=== PATIENT | female | born 1935 | race Caucasian/White ===

== ENCOUNTER 2017-08-17 07:49 | Inpatient (IN) | payer BC ==
[2017-08-17] MEDS: ALBUTEROL 0.083% (NEB) 2.5 MG/3 ML AMP INH (08:20)
[2017-08-17] MEDS: FUROSEMIDE 40 MG INJ IV (08:32)
[2017-08-17] MEDS: NITROGLYCERIN 2% 1 GM OINT PKT TD (08:33)
[2017-08-17] MEDS ORDERED: EPINEPHrine 0.1 MG/ML SYG (08:42)
[2017-08-17 09:05] LABS: ADD MAN DIFF? NO
[2017-08-17 09:12] LABS: BASOPHILS % 0.3 % (0.0-2.0); EOSINOPHILS % 0.1 % (0.0-7.0); HEMATOCRIT 39.4 % (37.0-47.0); HEMOGLOBIN 12.5 g/dl (12.0-16.0); LYMPHOCYTES # 1.8 10^3/ul (0.8-2.9); LYMPHOCYTES % 11.5 % (15.0-51.0); MEAN CORPUSCULAR HEMOGLOBIN 27.1 pg (29.0-33.0); MEAN CORPUSCULAR HGB CONC 31.7 g/dl (32.0-37.0); MEAN CORPUSCULAR VOLUME 85.5 fl (82.0-101.0); MEAN PLATELET VOLUME 10.7 fl (7.4-10.4); MONOCYTE # 0.6 10^3/ul (0.3-0.9); MONOCYTES % 3.6 % (0.0-11.0); NEUTROPHIL # 13.1 10^3/ul (1.6-7.5); NEUTROPHILS % 84.1 % (39.0-77.0); PLATELET COUNT 273 10^3/UL (140-415); RED BLOOD COUNT 4.61 10^6/ul (4.20-5.40); RED CELL DISTRIBUTION WIDTH 12.4 % (11.5-14.5)
[2017-08-17 09:12] LABS: WHITE BLOOD COUNT 15.6 10^3/ul (4.8-10.8)
[2017-08-17 09:27] LABS: ALANINE AMINOTRANSFERASE 37 IU/L (13-69); ALBUMIN 4.9 g/dl (3.3-4.9); ALBUMIN/GLOBULIN RATIO 1.68; ALKALINE PHOSPHATASE 59 IU/L (42-121); ANION GAP 30 (8-16); ASPARTATE AMINO TRANSFERASE 297 IU/L (15-46); BILIRUBIN,INDIRECT 0.1 mg/dl (0-1.1); BILIRUBIN,TOTAL 0.1 mg/dl (0.2-1.3); BLOOD UREA NITROGEN 36 mg/dl (7-20); CALCIUM 9.2 mg/dl (8.4-10.2); CARBON DIOXIDE 15 mmol/L (21-31); CHLORIDE 101 mmol/L (97-110); CREATININE 1.63 mg/dl (0.44-1.00); SODIUM 141 mmol/L (135-144); TOTAL PROTEIN 7.8 g/dl (6.1-8.1)
[2017-08-17 09:37] LABS: B-TYPE NATRIURETIC PEPTIDE 6570 PG/ML (0-450); INR 1.11; POTASSIUM 5.4 mmol/L (3.5-5.1); PROTIME 14.5 Sec (11.9-14.9); PT RATIO 1.1
[2017-08-17 09:38] LABS: GLUCOSE 401 mg/dl (70-220)
[2017-08-17 09:38] LABS: LACTIC ACID 11.3 mmol/L (0.5-2.0)
[2017-08-17] MEDS: PIPER-TAZO 3.375 GM IV (PMX) 100 ML IVPB (10:02)
[2017-08-17] MEDS: INSULIN REGULAR, HUMAN 100 UNIT/1 ML 3ML VIAL IV (10:03)
[2017-08-17] MEDS: ASPIRIN 325 MG TAB PO (10:23)
[2017-08-17] MEDS: LEVOFLOXACIN 750MG/D5W (PMX) 150 ML IVPB (11:10)
[2017-08-17] MEDS ORDERED: HEPARIN 1000 UNITS/ML 10 ML INJ IV (12:30)
[2017-08-17 12:44] LABS: LACTIC ACID 8.6 mmol/L (0.5-2.0)
[2017-08-17 12:47] LABS: ANION GAP 27 (8-16); BLOOD UREA NITROGEN 38 mg/dl (7-20); CALCIUM 9.2 mg/dl (8.4-10.2); CARBON DIOXIDE 19 mmol/L (21-31); CHLORIDE 102 mmol/L (97-110); CREATININE 1.64 mg/dl (0.44-1.00); GLUCOSE 271 mg/dl (70-220); POTASSIUM 4.8 mmol/L (3.5-5.1); SODIUM 143 mmol/L (135-144)
[2017-08-17] MEDS: HEPARIN 1000 UNITS/ML 10 ML INJ IV (13:05)
[2017-08-17] MEDS: HEPARIN 25000 UNITS/250 ML 250 ML IV (13:06)
[2017-08-17 13:38] LABS: CREATINE KINASE 2257 IU/L (23-200)
[2017-08-17] MEDS ORDERED: LORAZEPAM 0.5 MG TAB PO (14:00)
[2017-08-17] MEDS ORDERED: morphine 2 MG INJ IV (14:00)
[2017-08-17] MEDS ORDERED: ONDANSETRON 4 MG INJ IV (14:00)
[2017-08-17] MEDS ORDERED: ALBUTEROL 0.083% (NEB) 2.5 MG/3 ML AMP NEB (14:00)
[2017-08-17] MEDS ORDERED: ZOLPIDEM 5 MG TAB PO (14:00)
[2017-08-17 14:19] LABS: ADD UMIC YES; UR AMORPHOUS CRYSTAL FEW /HPF (NONE SEEN); UR ASCORBIC ACID NEGATIVE (NEGATIVE); UR BACTERIA FEW /HPF (NONE SEEN); UR BILIRUBIN (Dip) NEGATIVE (NEGATIVE); UR BLOOD (Dip) 2+ mg/dL (NEGATIVE); UR CLARITY SLIGHTLY CLOUDY (CLEAR); UR COLOR YELLOW (YELLOW); UR GLUCOSE (Dip) 1+ mg/dL (NEGATIVE); UR KETONES (Dip) NEGATIVE (NEGATIVE); UR LEUKOCYTE ESTERASE (Dip) TRACE Leu/ul (NEGATIVE); UR NITRITE (Dip) NEGATIVE (NEGATIVE); UR RBC 1 /HPF (0-5); UR SPECIFIC GRAVITY (Dip) 1.012 (1.003-1.030); UR TOTAL PROTEIN (Dip) 1+ mg/dl (NEGATIVE); UR UROBILINOGEN (Dip) NEGATIVE (NEGATIVE); UR WBC 5 /HPF (0-5)
[2017-08-17 14:40] LABS: SODIUM,URINE RANDOM 109 mmol/L (30-90)
[2017-08-17 14:40] LABS: CREATININE,URINE RANDOM 74.29 mg/dl (20-320)
[2017-08-17 14:46] LABS: MAGNESIUM 0.9 mg/dl (1.7-2.5)
[2017-08-17 14:52] LABS: CREATINE KINASE 2435 IU/L (23-200)
[2017-08-17] MEDS ORDERED: MAGNESIUM SULFATE 4 GM/100 ML 100 ML IVPB (15:30)
[2017-08-17] MEDS: DOCUSATE SODIUM 100 MG CAP PO (15:33)
[2017-08-17] MEDS: MAGNESIUM SULFATE 2 GM/50 ML 50 ML IVPB ×2 (15:33→17:21)
[2017-08-17] MEDS: FUROSEMIDE 20 MG INJ IV ×2 (15:33→20:15)
[2017-08-17] MEDS: ATORVASTATIN 80 MG TAB PO (15:33)
[2017-08-17] MEDS: VANCOMYCIN 750 MG in DEXTROSE 5% 150 ML IVPB (17:20)
[2017-08-17] MEDS: INSULIN ASPART [NOVOLOG] 3 ML PEN SC ×2 (17:51→20:21)
[2017-08-17 19:37] LABS: PARTIAL THROMBOPLASTIN TIME 72.9 Sec (25.0-35.0)
[2017-08-17] MEDS: FAMOTIDINE 20 MG INJ IV (20:15)
[2017-08-18 01:27] LABS: PARTIAL THROMBOPLASTIN TIME 53.9 Sec (25.0-35.0)
[2017-08-18] MEDS: DOCUSATE SODIUM 100 MG CAP PO ×3 (02:00→20:13)
[2017-08-18] MEDS: ACCU-CHEK XX (02:05)
[2017-08-18 05:39] LABS: ADD MAN DIFF? NO
[2017-08-18 05:42] LABS: BASOPHIL # 0.1 10^3/ul (0.0-0.1); BASOPHILS % 0.6 % (0.0-2.0); EOSINOPHILS % 0.2 % (0.0-7.0); HEMATOCRIT 31.8 % (37.0-47.0); HEMOGLOBIN 10.6 g/dl (12.0-16.0); LYMPHOCYTES # 1.7 10^3/ul (0.8-2.9); LYMPHOCYTES % 19.1 % (15.0-51.0); MEAN CORPUSCULAR HEMOGLOBIN 27.4 pg (29.0-33.0); MEAN CORPUSCULAR HGB CONC 33.3 g/dl (32.0-37.0); MEAN CORPUSCULAR VOLUME 82.2 fl (82.0-101.0); MEAN PLATELET VOLUME 10.3 fl (7.4-10.4); MONOCYTE # 0.6 10^3/ul (0.3-0.9); NEUTROPHIL # 6.5 10^3/ul (1.6-7.5); NEUTROPHILS % 72.7 % (39.0-77.0); PLATELET COUNT 193 10^3/UL (140-415); RED BLOOD COUNT 3.87 10^6/ul (4.20-5.40); RED CELL DISTRIBUTION WIDTH 12.5 % (11.5-14.5)
[2017-08-18 07:11] LABS: ANION GAP 17 (8-16); BLOOD UREA NITROGEN 35 mg/dl (7-20); CALCIUM 8.8 mg/dl (8.4-10.2); CARBON DIOXIDE 24 mmol/L (21-31); CHLORIDE 102 mmol/L (97-110); CK INDEX 2.5; CREATINE KINASE 1079 IU/L (23-200); CREATININE 1.39 mg/dl (0.44-1.00); GLUCOSE 207 mg/dl (70-220); PHOSPHORUS 4.3 mg/dl (2.5-4.9); POTASSIUM 4.5 mmol/L (3.5-5.1); SODIUM 138 mmol/L (135-144)
[2017-08-18] MEDS: INSULIN ASPART [NOVOLOG] 3 ML PEN SC ×6 (07:35→21:06)
[2017-08-18 08:40] LABS: PARTIAL THROMBOPLASTIN TIME 60.5 Sec (25.0-35.0)
[2017-08-18] MEDS: ASPIRIN 81 MG TAB PO (09:00)
[2017-08-18] MEDS ORDERED: BIVALIRUDIN 250MG /NS 50 ML 50 ML IVPB (12:30)
[2017-08-18] MEDS: FUROSEMIDE 20 MG INJ IV ×2 (13:56→18:44)
[2017-08-18] MEDS: MAGNESIUM SULFATE 2 GM/50 ML 50 ML IVPB (13:56)
[2017-08-18 15:15] LABS: CREATININE, RANDOM URINE 89 mg/dL (20-320); MICROALBUMIN 8.6 mg/dL; MICROALBUMIN/CREATININE RATIO 97 (<30)
[2017-08-18] MEDS ORDERED: GLUCOSE GEL 15 GRAM TUBE BUCCAL (19:00)
[2017-08-18] MEDS ORDERED: DEXTROSE 50% 50 ML SYRINGE IV ×2 (19:00)
[2017-08-18] MEDS ORDERED: GLUCAGON 1 MG INJ IM (19:00)
[2017-08-18] MEDS ORDERED: GLUCOSE GEL 15 GRAM TUBE PO ×2 (19:00)
[2017-08-18] MEDS: FAMOTIDINE 20 MG INJ IV (20:13)
[2017-08-18] MEDS: ATORVASTATIN 80 MG TAB PO (20:13)
[2017-08-18] MEDS: TICAGRELOR 90 MG TABLET PO (20:14)
[2017-08-18] MEDS: ACETAMINOPHEN 325 MG TAB PO (21:02)
[2017-08-19] MEDS: ACCU-CHEK XX (01:39)
[2017-08-19] MEDS: METOPROLOL 5 MG INJ IV (02:31)
[2017-08-19] MEDS: AMIODARONE 150MG/D5W BOLUS 100 ML IV (03:06)
[2017-08-19] MEDS: AMIODARONE 900 MG in DEXTROSE 5% 482 ML IV ×2 (03:41→17:34)
[2017-08-19 06:05] LABS: ADD MAN DIFF? NO
[2017-08-19 06:33] LABS: BASOPHIL # 0.1 10^3/ul (0.0-0.1); BASOPHILS % 0.6 % (0.0-2.0); EOSINOPHILS % 0.5 % (0.0-7.0); HEMOGLOBIN 11.5 g/dl (12.0-16.0); LYMPHOCYTES # 1.5 10^3/ul (0.8-2.9); LYMPHOCYTES % 17.4 % (15.0-51.0); MEAN CORPUSCULAR HEMOGLOBIN 27.3 pg (29.0-33.0); MEAN CORPUSCULAR HGB CONC 33.8 g/dl (32.0-37.0); MEAN CORPUSCULAR VOLUME 80.8 fl (82.0-101.0); MEAN PLATELET VOLUME 10.4 fl (7.4-10.4); MONOCYTE # 0.5 10^3/ul (0.3-0.9); NEUTROPHIL # 6.6 10^3/ul (1.6-7.5); PLATELET COUNT 211 10^3/UL (140-415); RED BLOOD COUNT 4.21 10^6/ul (4.20-5.40); RED CELL DISTRIBUTION WIDTH 12.9 % (11.5-14.5)
[2017-08-19 06:33] LABS: WHITE BLOOD COUNT 8.8 10^3/ul (4.8-10.8)
[2017-08-19 06:49] LABS: ANION GAP 17 (8-16); BLOOD UREA NITROGEN 33 mg/dl (7-20); CALCIUM 9.3 mg/dl (8.4-10.2); CARBON DIOXIDE 29 mmol/L (21-31); CHLORIDE 99 mmol/L (97-110); CREATININE 1.34 mg/dl (0.44-1.00); GLUCOSE 251 mg/dl (70-220); MAGNESIUM 2.1 mg/dl (1.7-2.5); POTASSIUM 4.4 mmol/L (3.5-5.1); SODIUM 141 mmol/L (135-144)
[2017-08-19] MEDS: ASPIRIN 81 MG TAB PO (08:36)
[2017-08-19] MEDS: DOCUSATE SODIUM 100 MG CAP PO ×2 (08:36→20:49)
[2017-08-19] MEDS: TICAGRELOR 90 MG TABLET PO ×2 (08:37→20:51)
[2017-08-19] MEDS: INSULIN GLARGINE [LANtus] 3 ML PEN SC (08:38)
[2017-08-19] MEDS: INSULIN ASPART [NOVOLOG] 3 ML PEN SC ×4 (08:41→20:52)
[2017-08-19] MEDS: SOD CHLORIDE 0.9% 250 ML IV (13:00)
[2017-08-19] MEDS ORDERED: ASPIRIN 325 MG TAB (16:28)
[2017-08-19] MEDS ORDERED: VERAPAMIL 5 MG INJ (16:28)
[2017-08-19] MEDS ORDERED: IODIXANOL LOCM 50 ML BTL (16:28)
[2017-08-19] MEDS ORDERED: IODIXANOL LOCM 100 ML BTL ×2 (16:28)
[2017-08-19] MEDS ORDERED: HEPARIN 1000 UNITS/ML 10 ML INJ (16:28)
[2017-08-19] MEDS ORDERED: NITROGLYCERIN (IC) 100 MCG/ML INJ (16:28)
[2017-08-19] MEDS ORDERED: IOHEXOL 350MG/ML 50 ML BTL (16:28)
[2017-08-19] MEDS ORDERED: FENTAnyl 50 MCG/ML VIAL (16:28)
[2017-08-19] MEDS ORDERED: LIDOCAINE 1% (MDV) 20 ML INJ (16:28)
[2017-08-19] MEDS ORDERED: MIDAZOLAM 1 MG/ML 2 ML INJ (16:28)
[2017-08-19] MEDS ORDERED: TICAGRELOR 90 MG TABLET (16:28)
[2017-08-19] MEDS ORDERED: BIVALIRUDIN 250MG /NS 50 ML 50 ML IVPB ×2 (16:28)
[2017-08-19] MEDS: ATORVASTATIN 80 MG TAB PO (20:50)
[2017-08-19] MEDS: FAMOTIDINE 20 MG INJ IV (20:50)
[2017-08-20] MEDS: ACCU-CHEK XX (02:10)
[2017-08-20] MEDS: AMIODARONE 900 MG in DEXTROSE 5% 482 ML IV ×2 (05:00→22:00)
[2017-08-20 05:27] LABS: ADD MAN DIFF? NO
[2017-08-20 05:40] LABS: BASOPHIL # 0.1 10^3/ul (0.0-0.1); BASOPHILS % 0.7 % (0.0-2.0); EOSINOPHILS # 0.1 10^3/ul (0.0-0.5); HEMATOCRIT 34.7 % (37.0-47.0); HEMOGLOBIN 11.7 g/dl (12.0-16.0); LYMPHOCYTES # 1.9 10^3/ul (0.8-2.9); LYMPHOCYTES % 21.8 % (15.0-51.0); MEAN CORPUSCULAR HEMOGLOBIN 27.3 pg (29.0-33.0); MEAN CORPUSCULAR HGB CONC 33.7 g/dl (32.0-37.0); MEAN CORPUSCULAR VOLUME 80.9 fl (82.0-101.0); MEAN PLATELET VOLUME 10.7 fl (7.4-10.4); MONOCYTE # 0.7 10^3/ul (0.3-0.9); MONOCYTES % 7.4 % (0.0-11.0); NEUTROPHILS % 68.5 % (39.0-77.0); PLATELET COUNT 231 10^3/UL (140-415); RED BLOOD COUNT 4.29 10^6/ul (4.20-5.40)
[2017-08-20 05:40] LABS: WHITE BLOOD COUNT 8.7 10^3/ul (4.8-10.8)
[2017-08-20 06:19] LABS: ANION GAP 20 (8-16); BLOOD UREA NITROGEN 36 mg/dl (7-20); CALCIUM 9.4 mg/dl (8.4-10.2); CARBON DIOXIDE 27 mmol/L (21-31); CHLORIDE 99 mmol/L (97-110); CREATININE 1.14 mg/dl (0.44-1.00); GLUCOSE 213 mg/dl (70-220); SODIUM 142 mmol/L (135-144)
[2017-08-20 06:31] LABS: MAGNESIUM 1.9 mg/dl (1.7-2.5)
[2017-08-20] MEDS: INSULIN ASPART [NOVOLOG] 3 ML PEN SC ×4 (07:40→20:48)
[2017-08-20] MEDS: INSULIN GLARGINE [LANtus] 3 ML PEN SC (07:41)
[2017-08-20] MEDS: ASPIRIN 81 MG TAB PO (08:18)
[2017-08-20] MEDS: DOCUSATE SODIUM 100 MG CAP PO ×2 (08:19→20:47)
[2017-08-20] MEDS: TICAGRELOR 90 MG TABLET PO ×2 (08:19→20:48)
[2017-08-20] MEDS: LINAGLIPTIN 5 MG TABLET PO (11:42)
[2017-08-20] MEDS: metFORMIN 500 MG TAB PO (17:41)
[2017-08-20] MEDS: ATORVASTATIN 80 MG TAB PO (20:46)
[2017-08-20] MEDS: FAMOTIDINE 20 MG INJ IV (20:46)
[2017-08-21] MEDS: ACCU-CHEK XX (02:36)
[2017-08-21 05:22] LABS: ADD MAN DIFF? NO
[2017-08-21 05:24] LABS: BASOPHIL # 0.1 10^3/ul (0.0-0.1); BASOPHILS % 0.5 % (0.0-2.0); EOSINOPHILS # 0.1 10^3/ul (0.0-0.5); EOSINOPHILS % 1.2 % (0.0-7.0); HEMATOCRIT 33.6 % (37.0-47.0); HEMOGLOBIN 11.3 g/dl (12.0-16.0); LYMPHOCYTES % 20.5 % (15.0-51.0); MEAN CORPUSCULAR HGB CONC 33.6 g/dl (32.0-37.0); MEAN CORPUSCULAR VOLUME 80.2 fl (82.0-101.0); MEAN PLATELET VOLUME 10.4 fl (7.4-10.4); MONOCYTE # 0.7 10^3/ul (0.3-0.9); MONOCYTES % 7.7 % (0.0-11.0); NEUTROPHIL # 6.7 10^3/ul (1.6-7.5); NEUTROPHILS % 69.3 % (39.0-77.0); PLATELET COUNT 253 10^3/UL (140-415); RED BLOOD COUNT 4.19 10^6/ul (4.20-5.40); RED CELL DISTRIBUTION WIDTH 12.7 % (11.5-14.5)
[2017-08-21 05:24] LABS: WHITE BLOOD COUNT 9.6 10^3/ul (4.8-10.8)
[2017-08-21 06:29] LABS: ANION GAP 17 (8-16); BLOOD UREA NITROGEN 38 mg/dl (7-20); CALCIUM 9.2 mg/dl (8.4-10.2); CARBON DIOXIDE 26 mmol/L (21-31); CHLORIDE 100 mmol/L (97-110); CREATININE 1.13 mg/dl (0.44-1.00); GLUCOSE 165 mg/dl (70-220); POTASSIUM 3.9 mmol/L (3.5-5.1); SODIUM 139 mmol/L (135-144)
[2017-08-21] MEDS: INSULIN ASPART [NOVOLOG] 3 ML PEN SC ×4 (08:24→20:31)
[2017-08-21] MEDS: INSULIN GLARGINE [LANtus] 3 ML PEN SC ×2 (08:24→14:57)
[2017-08-21] MEDS: ASPIRIN 81 MG TAB PO (08:25)
[2017-08-21] MEDS: TICAGRELOR 90 MG TABLET PO (08:25)
[2017-08-21] MEDS: DOCUSATE SODIUM 100 MG CAP PO ×2 (08:25→20:28)
[2017-08-21] MEDS: LINAGLIPTIN 5 MG TABLET PO (08:25)
[2017-08-21] MEDS: DIGOXIN 500 MCG INJ IV ×2 (16:16→22:19)
[2017-08-21] MEDS: MAGNESIUM SULFATE 2 GM/50 ML 50 ML IVPB (16:20)
[2017-08-21] MEDS: CLOPIDOGREL 75 MG TAB PO (16:20)
[2017-08-21] MEDS: metFORMIN 500 MG TAB PO (16:56)
[2017-08-21] MEDS: AMIODARONE 200 MG TAB PO (20:28)
[2017-08-21] MEDS: ATORVASTATIN 80 MG TAB PO (20:28)
[2017-08-21] MEDS: METOPROLOL 25 MG TAB PO (20:29)
[2017-08-21] MEDS: APIXABAN 5 MG TABLET PO (20:29)
[2017-08-21] MEDS: ACETAMINOPHEN 325 MG TAB PO (20:37)
[2017-08-21] MEDS: FAMOTIDINE 20 MG INJ IV (20:38)
[2017-08-21] MEDS ORDERED: CLINDAMYCIN 1% 30 GM GEL TOP (23:00)
[2017-08-22] MEDS: ACCU-CHEK XX (02:00)
[2017-08-22] MEDS: CLINDAMYCIN 1% 30 GM GEL TOP (03:09)
[2017-08-22 05:50] LABS: ADD MAN DIFF? NO
[2017-08-22 06:01] LABS: WHITE BLOOD COUNT 9.8 10^3/ul (4.8-10.8)
[2017-08-22 06:01] LABS: BASOPHIL # 0.1 10^3/ul (0.0-0.1); BASOPHILS % 0.5 % (0.0-2.0); EOSINOPHILS # 0.2 10^3/ul (0.0-0.5); EOSINOPHILS % 1.9 % (0.0-7.0); HEMATOCRIT 33.7 % (37.0-47.0); HEMOGLOBIN 11.3 g/dl (12.0-16.0); LYMPHOCYTES # 1.6 10^3/ul (0.8-2.9); LYMPHOCYTES % 16.1 % (15.0-51.0); MEAN CORPUSCULAR HEMOGLOBIN 27.2 pg (29.0-33.0); MEAN CORPUSCULAR HGB CONC 33.5 g/dl (32.0-37.0); MEAN CORPUSCULAR VOLUME 81.2 fl (82.0-101.0); MEAN PLATELET VOLUME 10.6 fl (7.4-10.4); MONOCYTE # 0.8 10^3/ul (0.3-0.9); MONOCYTES % 8.3 % (0.0-11.0); NEUTROPHIL # 7.1 10^3/ul (1.6-7.5); NEUTROPHILS % 72.9 % (39.0-77.0); PLATELET COUNT 246 10^3/UL (140-415); RED BLOOD COUNT 4.15 10^6/ul (4.20-5.40); RED CELL DISTRIBUTION WIDTH 12.9 % (11.5-14.5)
[2017-08-22 06:40] LABS: ANION GAP 17 (8-16); BLOOD UREA NITROGEN 35 mg/dl (7-20); CALCIUM 9.2 mg/dl (8.4-10.2); CARBON DIOXIDE 24 mmol/L (21-31); CHLORIDE 103 mmol/L (97-110); CREATININE 0.95 mg/dl (0.44-1.00); GLUCOSE 181 mg/dl (70-220); POTASSIUM 4.4 mmol/L (3.5-5.1); SODIUM 140 mmol/L (135-144)
[2017-08-22 06:49] LABS: MAGNESIUM 1.9 mg/dl (1.7-2.5)
[2017-08-22] MEDS: LINAGLIPTIN 5 MG TABLET PO (08:28)
[2017-08-22] MEDS: CLOPIDOGREL 75 MG TAB PO (08:28)
[2017-08-22] MEDS: APIXABAN 5 MG TABLET PO ×2 (08:28→21:18)
[2017-08-22] MEDS: METOPROLOL 25 MG TAB PO ×3 (08:28→23:56)
[2017-08-22] MEDS: metFORMIN 500 MG TAB PO ×2 (08:28→17:30)
[2017-08-22] MEDS: AMIODARONE 200 MG TAB PO ×2 (08:29→21:18)
[2017-08-22] MEDS: ASPIRIN 81 MG TAB PO (08:29)
[2017-08-22] MEDS: DOCUSATE SODIUM 100 MG CAP PO ×2 (08:29→21:18)
[2017-08-22] MEDS: INSULIN GLARGINE [LANtus] 3 ML PEN SC (08:34)
[2017-08-22] MEDS: INSULIN ASPART [NOVOLOG] 3 ML PEN SC ×4 (08:36→21:00)
[2017-08-22] MEDS: DIGOXIN 0.125 MG TAB PO (13:24)
[2017-08-22] MEDS: MAGNESIUM SULFATE 2 GM/50 ML 50 ML IVPB (15:48)
[2017-08-22] MEDS: ATORVASTATIN 80 MG TAB PO (21:17)
[2017-08-22] MEDS: FAMOTIDINE 20 MG INJ IV (21:18)
[2017-08-23] MEDS: ACCU-CHEK XX (01:54)
[2017-08-23] MEDS: METOPROLOL 25 MG TAB PO ×3 (06:24→21:15)
[2017-08-23] MEDS: metFORMIN 500 MG TAB PO ×2 (06:30→17:56)
[2017-08-23 08:08] LABS: ANION GAP 17 (8-16); BLOOD UREA NITROGEN 30 mg/dl (7-20); CALCIUM 9.1 mg/dl (8.4-10.2); CARBON DIOXIDE 25 mmol/L (21-31); CHLORIDE 101 mmol/L (97-110); CREATININE 1.08 mg/dl (0.44-1.00); GLUCOSE 221 mg/dl (70-220); MAGNESIUM 1.9 mg/dl (1.7-2.5); PHOSPHORUS 3.2 mg/dl (2.5-4.9); POTASSIUM 4.7 mmol/L (3.5-5.1); SODIUM 138 mmol/L (135-144)
[2017-08-23] MEDS: ASPIRIN 81 MG TAB PO (09:09)
[2017-08-23] MEDS: DOCUSATE SODIUM 100 MG CAP PO ×2 (09:09→21:14)
[2017-08-23] MEDS: AMIODARONE 200 MG TAB PO ×2 (09:09→21:14)
[2017-08-23] MEDS: LINAGLIPTIN 5 MG TABLET PO (09:10)
[2017-08-23] MEDS: APIXABAN 5 MG TABLET PO ×2 (09:10→21:14)
[2017-08-23] MEDS: CLOPIDOGREL 75 MG TAB PO (09:10)
[2017-08-23] MEDS: INSULIN GLARGINE [LANtus] 3 ML PEN SC (09:11)
[2017-08-23] MEDS: INSULIN ASPART [NOVOLOG] 3 ML PEN SC ×4 (09:14→21:00)
[2017-08-23] MEDS: DIGOXIN 0.125 MG TAB PO (13:33)
[2017-08-23] MEDS: MAGNESIUM SULFATE 2 GM/50 ML 50 ML IVPB (16:11)
[2017-08-23] MEDS: ATORVASTATIN 80 MG TAB PO (21:14)
[2017-08-23] MEDS: FAMOTIDINE 20 MG INJ IV (21:14)
[2017-08-24] MEDS: ACCU-CHEK XX (02:00)
[2017-08-24] MEDS: metFORMIN 500 MG TAB PO (06:44)
[2017-08-24] MEDS: ASPIRIN 81 MG TAB PO (08:14)
[2017-08-24] MEDS: DOCUSATE SODIUM 100 MG CAP PO (08:14)
[2017-08-24] MEDS: AMIODARONE 200 MG TAB PO (08:14)
[2017-08-24] MEDS: APIXABAN 5 MG TABLET PO (08:14)
[2017-08-24] MEDS: CLOPIDOGREL 75 MG TAB PO (08:14)
[2017-08-24] MEDS: LINAGLIPTIN 5 MG TABLET PO (08:14)
[2017-08-24] MEDS: METOPROLOL 25 MG TAB PO (08:15)
[2017-08-24] MEDS: INSULIN GLARGINE [LANtus] 3 ML PEN SC (08:16)
[2017-08-24] MEDS: INSULIN ASPART [NOVOLOG] 3 ML PEN SC ×2 (08:16→12:00)
[2017-08-24 09:04] LABS: ANION GAP 17 (8-16); BLOOD UREA NITROGEN 28 mg/dl (7-20); CALCIUM 9.1 mg/dl (8.4-10.2); CARBON DIOXIDE 25 mmol/L (21-31); CHLORIDE 102 mmol/L (97-110); CREATININE 1.04 mg/dl (0.44-1.00); GLUCOSE 139 mg/dl (70-220); MAGNESIUM 2.1 mg/dl (1.7-2.5); PHOSPHORUS 3.3 mg/dl (2.5-4.9); POTASSIUM 4.7 mmol/L (3.5-5.1); SODIUM 139 mmol/L (135-144)
[2017-08-24] MEDS: DIGOXIN 0.125 MG TAB PO (12:32)
[2017-08-24] MEDS: INFLUENZA VIRUS VACCINE 0.5 ML SYG IM* (12:34)
[2017-08-25] MEDS ORDERED: AMIODARONE 200 MG TAB PO (09:00)
== END 2017-08-24 15:44 | disposition home or self-care (01) | DRG 246 ==
LOC: MS4 08-22 14:59 → E/R 07:49 → ICU 11:20
PROC: 027034Z Dilation of Coronary Artery, One Artery with Drug-eluting Intraluminal Device, Percutaneous Approach (ICD-10-PCS; principal; 2017-08-18 10:07)
PROC: 4A023N7 Measurement of Cardiac Sampling and Pressure, Left Heart, Percutaneous Approach (ICD-10-PCS; 2017-08-18 10:07)
PROC: B211YZZ Fluoroscopy of Multiple Coronary Arteries using Other Contrast (ICD-10-PCS; 2017-08-18 10:07)
PROC: B215YZZ Fluoroscopy of Left Heart using Other Contrast (ICD-10-PCS; 2017-08-18 10:07)
PROC: 3E0234Z Introduction of Serum, Toxoid and Vaccine into Muscle, Percutaneous Approach (ICD-10-PCS; 2017-08-18 10:07)
PROC: 5A09357 Assistance with Respiratory Ventilation, Less than 24 Consecutive Hours, Continuous Positive Airway Pressure (ICD-10-PCS; 2017-08-18 10:07)
DX: I21.4 Non-ST elevation (NSTEMI) myocardial infarction (principal); I50.43 Acute on chronic combined systolic (congestive) and diastolic (congestive) heart failure; J96.00 Acute respiratory failure, unspecified whether with hypoxia or hypercapnia; N17.9 Acute kidney failure, unspecified; E87.2 Acidosis; I13.0 Hypertensive heart and chronic kidney disease with heart failure and stage 1 through stage 4 chronic kidney disease, or unspecified chronic kidney disease; I42.9 Cardiomyopathy, unspecified; M62.82 Rhabdomyolysis; T82.868A Thrombosis due to vascular prosthetic devices, implants and grafts, initial encounter; E11.65 Type 2 diabetes mellitus with hyperglycemia; E11.40 Type 2 diabetes mellitus with diabetic neuropathy, unspecified; I35.0 Nonrheumatic aortic (valve) stenosis; E87.5 Hyperkalemia; E11.22 Type 2 diabetes mellitus with diabetic chronic kidney disease; N18.9 Chronic kidney disease, unspecified; I25.10 Atherosclerotic heart disease of native coronary artery without angina pectoris; I48.91 Unspecified atrial fibrillation; E78.00 Pure hypercholesterolemia, unspecified; Z79.82 Long term (current) use of aspirin; Z23 Encounter for immunization; D72.829 Elevated white blood cell count, unspecified; Y84.8 Other medical procedures as the cause of abnormal reaction of the patient, or of later complication, without mention of misadventure at the time of the procedure
CPT/HCPCS: 36415; 71045; 73090; 76775; 80048; 80053; 81001; 81003; 82043; 82550; 82553; 82962; 83605; 83735; 83880; 84100; 84155; 84300; 84484; 85025; 85610; 85730; 87040; 87081; 90686; 93005; 93306; 93458; 93971; 94660; 94664; 96365; 96366; 96375; 97162; 99291-25; J1940

== ENCOUNTER 2017-09-11 01:48 | Inpatient (IN) | payer BC ==
[2017-09-11 02:43] LABS: ADD MAN DIFF? NO
[2017-09-11 02:44] LABS: WHITE BLOOD COUNT 9.7 10^3/ul (4.8-10.8)
[2017-09-11 02:45] LABS: BASOPHILS % 0.4 % (0.0-2.0); EOSINOPHILS # 0.2 10^3/ul (0.0-0.5); HEMATOCRIT 32.6 % (37.0-47.0); HEMOGLOBIN 10.6 g/dl (12.0-16.0); LYMPHOCYTES # 1.5 10^3/ul (0.8-2.9); LYMPHOCYTES % 15.7 % (15.0-51.0); MEAN CORPUSCULAR HEMOGLOBIN 26.9 pg (29.0-33.0); MEAN CORPUSCULAR HGB CONC 32.5 g/dl (32.0-37.0); MEAN CORPUSCULAR VOLUME 82.7 fl (82.0-101.0); MEAN PLATELET VOLUME 10.9 fl (7.4-10.4); MONOCYTE # 0.4 10^3/ul (0.3-0.9); MONOCYTES % 4.6 % (0.0-11.0); NEUTROPHIL # 7.4 10^3/ul (1.6-7.5); NEUTROPHILS % 76.8 % (39.0-77.0); PLATELET COUNT 210 10^3/UL (140-415); RED BLOOD COUNT 3.94 10^6/ul (4.20-5.40)
[2017-09-11] MEDS: ASPIRIN 325 MG TAB PO (02:51)
[2017-09-11 03:05] LABS: ANION GAP 28 (8-16); BLOOD UREA NITROGEN 27 mg/dl (7-20); CALCIUM 9.3 mg/dl (8.4-10.2); CARBON DIOXIDE 17 mmol/L (21-31); CHLORIDE 108 mmol/L (97-110); CREATININE 1.27 mg/dl (0.44-1.00); GLUCOSE 176 mg/dl (70-220); POTASSIUM 4.9 mmol/L (3.5-5.1); SODIUM 148 mmol/L (135-144)
[2017-09-11 03:17] LABS: B-TYPE NATRIURETIC PEPTIDE 8310 PG/ML (0-450)
[2017-09-11 03:22] LABS: TROPONIN-I 0.174 ng/ml (0.00-0.12)
[2017-09-11] MEDS ORDERED: ACETAMINOPHEN 325 MG TAB PO ×2 (04:30→08:00)
[2017-09-11] MEDS ORDERED: ONDANSETRON 4 MG INJ IV ×2 (04:30→08:00)
[2017-09-11 06:11] LABS: INR 2.22; PARTIAL THROMBOPLASTIN TIME 38.4 Sec (25.0-35.0); PROTIME 25.2 Sec (11.9-14.9)
[2017-09-11] MEDS ORDERED: NACL 0.9% 3 ML SYG IV (08:00)
[2017-09-11] MEDS ORDERED: NITROGLYCERIN (SL) 0.4 MG TAB SL (08:00)
[2017-09-11 08:17] LABS: CREATINE KINASE 42 IU/L (23-200)
[2017-09-11 08:22] LABS: CK INDEX 3.4; CK-MB 1.41 ng/ml (0.0-2.4)
[2017-09-11 08:24] LABS: TROPONIN-I 0.167 ng/ml (0.00-0.12)
[2017-09-11] MEDS: FAMOTIDINE 20 MG INJ IV ×2 (09:28→20:38)
[2017-09-11] MEDS: AMIODARONE 200 MG TAB PO (09:28)
[2017-09-11] MEDS: METOPROLOL (XL) 50 MG TAB PO (09:29)
[2017-09-11] MEDS: OXYBUTYNIN (XL) 5 MG TAB PO (09:29)
[2017-09-11] MEDS: APIXABAN 5 MG TABLET PO ×2 (09:29→20:31)
[2017-09-11] MEDS: GABAPENTIN 100 MG CAP PO (09:29)
[2017-09-11] MEDS: CLOPIDOGREL 75 MG TAB PO (09:29)
[2017-09-11] MEDS ORDERED: INSULIN ASPART [NOVOLOG] 3 ML PEN SC (13:00)
[2017-09-11] MEDS: Insulin NOVOLOG SS MILD Algorithm (NPO/TPN/ENTERAL FEEDS) SC ×3 (13:00→20:49)
[2017-09-11 16:03] LABS: CREATINE KINASE 39 IU/L (23-200)
[2017-09-11 16:16] LABS: CK INDEX 2.8
[2017-09-11 16:29] LABS: TROPONIN-I 0.139 ng/ml (0.00-0.12)
[2017-09-11] MEDS: FUROSEMIDE 40 MG INJ IV (17:16)
[2017-09-11] MEDS ORDERED: VITAMIN A & D 5 GM OINT PACKET TOP (17:31)
[2017-09-11] MEDS: ATORVASTATIN 80 MG TAB PO (20:31)
[2017-09-11] MEDS: INSULIN GLARGINE [LANtus] 3 ML PEN SC (20:43)
[2017-09-12] MEDS: Insulin NOVOLOG SS MILD Algorithm (NPO/TPN/ENTERAL FEEDS) SC (01:00)
[2017-09-12] MEDS: ACCU-CHEK XX (01:24)
[2017-09-12] MEDS: FUROSEMIDE 40 MG INJ IV ×2 (06:23→17:39)
[2017-09-12] MEDS: INSULIN ASPART [NOVOLOG] 3 ML PEN SC ×4 (08:00→20:12)
[2017-09-12] MEDS ORDERED: **FLU VACCINE PREVIOUSLY DISPENSED XX (08:00)
[2017-09-12] MEDS: FAMOTIDINE 20 MG INJ IV (08:36)
[2017-09-12] MEDS: AMIODARONE 200 MG TAB PO ×2 (08:37→20:11)
[2017-09-12] MEDS: CLOPIDOGREL 75 MG TAB PO (08:37)
[2017-09-12] MEDS: APIXABAN 5 MG TABLET PO ×2 (08:37→20:11)
[2017-09-12] MEDS: GABAPENTIN 100 MG CAP PO (08:37)
[2017-09-12] MEDS: OXYBUTYNIN (XL) 5 MG TAB PO (08:38)
[2017-09-12] MEDS: METOPROLOL (XL) 50 MG TAB PO (08:38)
[2017-09-12 08:58] LABS: ADD MAN DIFF? NO
[2017-09-12 09:01] LABS: WHITE BLOOD COUNT 5.5 10^3/ul (4.8-10.8)
[2017-09-12 09:01] LABS: BASOPHILS % 0.7 % (0.0-2.0); EOSINOPHILS # 0.2 10^3/ul (0.0-0.5); EOSINOPHILS % 3.8 % (0.0-7.0); HEMATOCRIT 32.7 % (37.0-47.0); HEMOGLOBIN 10.9 g/dl (12.0-16.0); LYMPHOCYTES # 1.3 10^3/ul (0.8-2.9); MEAN CORPUSCULAR HEMOGLOBIN 26.9 pg (29.0-33.0); MEAN CORPUSCULAR HGB CONC 33.3 g/dl (32.0-37.0); MEAN CORPUSCULAR VOLUME 80.7 fl (82.0-101.0); MEAN PLATELET VOLUME 10.9 fl (7.4-10.4); MONOCYTE # 0.4 10^3/ul (0.3-0.9); MONOCYTES % 7.3 % (0.0-11.0); NEUTROPHIL # 3.5 10^3/ul (1.6-7.5); NEUTROPHILS % 63.8 % (39.0-77.0); PLATELET COUNT 207 10^3/UL (140-415); RED BLOOD COUNT 4.05 10^6/ul (4.20-5.40); RED CELL DISTRIBUTION WIDTH 13.8 % (11.5-14.5)
[2017-09-12 09:22] LABS: ALANINE AMINOTRANSFERASE 23 IU/L (13-69); ALBUMIN 4.6 g/dl (3.3-4.9); ALBUMIN/GLOBULIN RATIO 1.58; ALKALINE PHOSPHATASE 53 IU/L (42-121); ANION GAP 22 (8-16); ASPARTATE AMINO TRANSFERASE 26 IU/L (15-46); BILIRUBIN,INDIRECT 0.7 mg/dl (0-1.1); BILIRUBIN,TOTAL 0.7 mg/dl (0.2-1.3); BLOOD UREA NITROGEN 28 mg/dl (7-20); CARBON DIOXIDE 26 mmol/L (21-31); CHLORIDE 101 mmol/L (97-110); GLUCOSE 127 mg/dl (70-220); POTASSIUM 4.3 mmol/L (3.5-5.1); SODIUM 145 mmol/L (135-144); TOTAL PROTEIN 7.5 g/dl (6.1-8.1)
[2017-09-12] MEDS: INSULIN GLARGINE [LANtus] 3 ML PEN SC (20:09)
[2017-09-12] MEDS: ATORVASTATIN 80 MG TAB PO (20:11)
[2017-09-12] MEDS: METOPROLOL 50 MG TAB PO (20:11)
[2017-09-13] MEDS: ACCU-CHEK XX (01:39)
[2017-09-13] MEDS: FUROSEMIDE 20 MG INJ IV ×2 (06:00→15:30)
[2017-09-13] MEDS: INSULIN ASPART [NOVOLOG] 3 ML PEN SC ×4 (08:00→21:00)
[2017-09-13 08:54] LABS: ADD MAN DIFF? NO
[2017-09-13] MEDS: GABAPENTIN 100 MG CAP PO (08:55)
[2017-09-13] MEDS: CLOPIDOGREL 75 MG TAB PO (08:55)
[2017-09-13] MEDS: METOPROLOL 50 MG TAB PO ×2 (08:56→21:00)
[2017-09-13] MEDS: OXYBUTYNIN (XL) 5 MG TAB PO (08:56)
[2017-09-13] MEDS: APIXABAN 5 MG TABLET PO ×2 (08:57→21:02)
[2017-09-13] MEDS: AMIODARONE 200 MG TAB PO ×2 (08:57→21:00)
[2017-09-13 09:02] LABS: BASOPHIL # 0.1 10^3/ul (0.0-0.1); BASOPHILS % 0.9 % (0.0-2.0); EOSINOPHILS # 0.3 10^3/ul (0.0-0.5); EOSINOPHILS % 4.1 % (0.0-7.0); HEMOGLOBIN 10.7 g/dl (12.0-16.0); LYMPHOCYTES # 1.6 10^3/ul (0.8-2.9); LYMPHOCYTES % 24.2 % (15.0-51.0); MEAN CORPUSCULAR HEMOGLOBIN 26.8 pg (29.0-33.0); MEAN CORPUSCULAR HGB CONC 33.4 g/dl (32.0-37.0); MEAN PLATELET VOLUME 11.1 fl (7.4-10.4); MONOCYTE # 0.6 10^3/ul (0.3-0.9); MONOCYTES % 8.5 % (0.0-11.0); NEUTROPHIL # 4.1 10^3/ul (1.6-7.5); PLATELET COUNT 208 10^3/UL (140-415)
[2017-09-13 09:02] LABS: WHITE BLOOD COUNT 6.6 10^3/ul (4.8-10.8)
[2017-09-13 09:32] LABS: BLOOD UREA NITROGEN 33 mg/dl (7-20); CALCIUM 8.6 mg/dl (8.4-10.2); CARBON DIOXIDE 26 mmol/L (21-31); CREATININE 1.56 mg/dl (0.44-1.00); GLUCOSE 134 mg/dl (70-220)
[2017-09-13 09:41] LABS: ANION GAP 22 (8-16); CHLORIDE 102 mmol/L (97-110); POTASSIUM 3.5 mmol/L (3.5-5.1); SODIUM 146 mmol/L (135-144)
[2017-09-13 10:08] LABS: PHOSPHORUS 5.4 mg/dl (2.5-4.9)
[2017-09-13] MEDS: MAGNESIUM SULFATE 4 GM/100 ML 100 ML IVPB (12:53)
[2017-09-13] MEDS ORDERED: DEXTROSE 50% 50 ML SYRINGE IV ×2 (13:00)
[2017-09-13] MEDS ORDERED: GLUCOSE GEL 15 GRAM TUBE PO ×2 (13:00)
[2017-09-13] MEDS ORDERED: GLUCAGON 1 MG INJ IM (13:00)
[2017-09-13] MEDS ORDERED: GLUCOSE GEL 15 GRAM TUBE BUCCAL (13:00)
[2017-09-13] MEDS: POTASSIUM CHLORIDE (SR) 20 MEQ TAB PO (15:30)
[2017-09-13 16:31] LABS: MAGNESIUM 2.5 mg/dl (1.7-2.5)
[2017-09-13] MEDS: ATORVASTATIN 80 MG TAB PO (21:02)
[2017-09-13] MEDS: INSULIN GLARGINE [LANtus] 3 ML PEN SC (21:08)
[2017-09-14] MEDS: ACCU-CHEK XX (01:49)
[2017-09-14] MEDS: FUROSEMIDE 20 MG INJ IV ×2 (06:00→14:56)
[2017-09-14] MEDS: INSULIN ASPART [NOVOLOG] 3 ML PEN SC ×4 (08:21→20:58)
[2017-09-14] MEDS: CLOPIDOGREL 75 MG TAB PO (08:54)
[2017-09-14] MEDS: OXYBUTYNIN (XL) 5 MG TAB PO (08:54)
[2017-09-14] MEDS: APIXABAN 5 MG TABLET PO ×2 (08:54→20:39)
[2017-09-14] MEDS: GABAPENTIN 100 MG CAP PO (08:54)
[2017-09-14] MEDS: AMIODARONE 200 MG TAB PO ×3 (08:55→20:39)
[2017-09-14] MEDS: METOPROLOL 50 MG TAB PO ×2 (08:56→20:39)
[2017-09-14 09:25] LABS: ADD MAN DIFF? NO
[2017-09-14 09:37] LABS: BASOPHILS % 0.6 % (0.0-2.0); EOSINOPHILS # 0.3 10^3/ul (0.0-0.5); EOSINOPHILS % 4.8 % (0.0-7.0); HEMATOCRIT 35.7 % (37.0-47.0); HEMOGLOBIN 11.6 g/dl (12.0-16.0); LYMPHOCYTES # 1.9 10^3/ul (0.8-2.9); LYMPHOCYTES % 28.1 % (15.0-51.0); MEAN CORPUSCULAR HEMOGLOBIN 26.5 pg (29.0-33.0); MEAN CORPUSCULAR HGB CONC 32.5 g/dl (32.0-37.0); MEAN CORPUSCULAR VOLUME 81.7 fl (82.0-101.0); MEAN PLATELET VOLUME 10.8 fl (7.4-10.4); MONOCYTE # 0.5 10^3/ul (0.3-0.9); MONOCYTES % 8.1 % (0.0-11.0); NEUTROPHIL # 3.9 10^3/ul (1.6-7.5); NEUTROPHILS % 58.1 % (39.0-77.0); PLATELET COUNT 219 10^3/UL (140-415); RED BLOOD COUNT 4.37 10^6/ul (4.20-5.40); RED CELL DISTRIBUTION WIDTH 13.8 % (11.5-14.5)
[2017-09-14 09:37] LABS: WHITE BLOOD COUNT 6.7 10^3/ul (4.8-10.8)
[2017-09-14 09:52] LABS: PHOSPHORUS 4.3 mg/dl (2.5-4.9)
[2017-09-14 09:54] LABS: MAGNESIUM 2.1 mg/dl (1.7-2.5)
[2017-09-14 09:54] LABS: ANION GAP 20 (8-16); BLOOD UREA NITROGEN 30 mg/dl (7-20); CALCIUM 8.6 mg/dl (8.4-10.2); CARBON DIOXIDE 26 mmol/L (21-31); CHLORIDE 105 mmol/L (97-110); CREATININE 1.47 mg/dl (0.44-1.00); GLUCOSE 136 mg/dl (70-220); POTASSIUM 4.2 mmol/L (3.5-5.1); SODIUM 147 mmol/L (135-144)
[2017-09-14] MEDS: ATORVASTATIN 80 MG TAB PO (20:39)
[2017-09-14] MEDS: INSULIN GLARGINE [LANtus] 3 ML PEN SC (20:58)
[2017-09-15] MEDS: ACCU-CHEK XX (01:51)
[2017-09-15] MEDS: FUROSEMIDE 20 MG TAB PO (06:27)
[2017-09-15] MEDS: INSULIN ASPART [NOVOLOG] 3 ML PEN SC ×4 (07:33→21:35)
[2017-09-15] MEDS: METOPROLOL 50 MG TAB PO (08:46)
[2017-09-15] MEDS: CLOPIDOGREL 75 MG TAB PO (08:46)
[2017-09-15] MEDS: APIXABAN 5 MG TABLET PO ×2 (08:46→21:32)
[2017-09-15] MEDS: OXYBUTYNIN (XL) 5 MG TAB PO (08:46)
[2017-09-15] MEDS: AMIODARONE 200 MG TAB PO ×2 (08:46→21:32)
[2017-09-15] MEDS: GABAPENTIN 100 MG CAP PO (08:46)
[2017-09-15 09:03] LABS: ADD MAN DIFF? NO
[2017-09-15 09:08] LABS: BASOPHIL # 0.1 10^3/ul (0.0-0.1); BASOPHILS % 0.9 % (0.0-2.0); EOSINOPHILS # 0.4 10^3/ul (0.0-0.5); EOSINOPHILS % 5.5 % (0.0-7.0); HEMATOCRIT 32.4 % (37.0-47.0); HEMOGLOBIN 10.6 g/dl (12.0-16.0); LYMPHOCYTES # 1.9 10^3/ul (0.8-2.9); LYMPHOCYTES % 28.5 % (15.0-51.0); MEAN CORPUSCULAR HEMOGLOBIN 26.8 pg (29.0-33.0); MEAN CORPUSCULAR HGB CONC 32.7 g/dl (32.0-37.0); MEAN CORPUSCULAR VOLUME 81.8 fl (82.0-101.0); MONOCYTE # 0.6 10^3/ul (0.3-0.9); MONOCYTES % 8.9 % (0.0-11.0); NEUTROPHIL # 3.8 10^3/ul (1.6-7.5); NEUTROPHILS % 55.8 % (39.0-77.0); PLATELET COUNT 206 10^3/UL (140-415); RED BLOOD COUNT 3.96 10^6/ul (4.20-5.40); RED CELL DISTRIBUTION WIDTH 14.1 % (11.5-14.5)
[2017-09-15 09:08] LABS: WHITE BLOOD COUNT 6.7 10^3/ul (4.8-10.8)
[2017-09-15 09:28] LABS: ANION GAP 20 (8-16); BLOOD UREA NITROGEN 32 mg/dl (7-20); CALCIUM 8.8 mg/dl (8.4-10.2); CARBON DIOXIDE 27 mmol/L (21-31); CHLORIDE 102 mmol/L (97-110); CREATININE 1.49 mg/dl (0.44-1.00); GLUCOSE 150 mg/dl (70-220); POTASSIUM 4.1 mmol/L (3.5-5.1); SODIUM 145 mmol/L (135-144)
[2017-09-15 09:29] LABS: MAGNESIUM 1.7 mg/dl (1.7-2.5)
[2017-09-15] MEDS ORDERED: PROPOFOL 20 ML (11:27)
[2017-09-15] MEDS ORDERED: PHENYLephrine (100 MCG/ML) 5ML SYG (11:27)
[2017-09-15] MEDS ORDERED: ETOMIDATE 20 MG INJ (11:27)
[2017-09-15] MEDS: MAGNESIUM SULFATE 2 GM/50 ML 50 ML IVPB (12:52)
[2017-09-15] MEDS: ATORVASTATIN 80 MG TAB PO (21:32)
[2017-09-15] MEDS: METOPROLOL 25 MG TAB PO (21:32)
[2017-09-15] MEDS: INSULIN GLARGINE [LANtus] 3 ML PEN SC (21:36)
[2017-09-16] MEDS: ACCU-CHEK XX (02:10)
[2017-09-16 07:56] LABS: ADD MAN DIFF? NO
[2017-09-16 08:03] LABS: WHITE BLOOD COUNT 6.3 10^3/ul (4.8-10.8)
[2017-09-16 08:03] LABS: BASOPHIL # 0.1 10^3/ul (0.0-0.1); BASOPHILS % 0.8 % (0.0-2.0); EOSINOPHILS # 0.3 10^3/ul (0.0-0.5); EOSINOPHILS % 4.9 % (0.0-7.0); HEMATOCRIT 30.5 % (37.0-47.0); LYMPHOCYTES % 31.3 % (15.0-51.0); MEAN CORPUSCULAR HGB CONC 32.8 g/dl (32.0-37.0); MEAN CORPUSCULAR VOLUME 82.2 fl (82.0-101.0); MONOCYTE # 0.5 10^3/ul (0.3-0.9); MONOCYTES % 7.7 % (0.0-11.0); NEUTROPHIL # 3.5 10^3/ul (1.6-7.5); PLATELET COUNT 193 10^3/UL (140-415); RED BLOOD COUNT 3.71 10^6/ul (4.20-5.40); RED CELL DISTRIBUTION WIDTH 14.2 % (11.5-14.5)
[2017-09-16 08:41] LABS: ANION GAP 17 (8-16); BLOOD UREA NITROGEN 29 mg/dl (7-20); CALCIUM 8.9 mg/dl (8.4-10.2); CARBON DIOXIDE 27 mmol/L (21-31); CHLORIDE 104 mmol/L (97-110); CREATININE 1.31 mg/dl (0.44-1.00); GLUCOSE 127 mg/dl (70-220); POTASSIUM 4.2 mmol/L (3.5-5.1); SODIUM 144 mmol/L (135-144)
[2017-09-16] MEDS: METOPROLOL 25 MG TAB PO (09:00)
[2017-09-16] MEDS: OXYBUTYNIN (XL) 5 MG TAB PO (09:13)
[2017-09-16] MEDS: FUROSEMIDE 20 MG TAB PO (09:13)
[2017-09-16] MEDS: GABAPENTIN 100 MG CAP PO (09:13)
[2017-09-16] MEDS: CLOPIDOGREL 75 MG TAB PO (09:13)
[2017-09-16] MEDS: APIXABAN 5 MG TABLET PO (09:18)
[2017-09-16] MEDS: AMIODARONE 200 MG TAB PO (09:18)
[2017-09-16] MEDS: INSULIN ASPART [NOVOLOG] 3 ML PEN SC ×2 (10:38→13:02)
== END 2017-09-16 15:53 | disposition home or self-care (01) | DRG 280 ==
LOC: E/R 01:48 → MS4 04:14
PROC: 5A2204Z Restoration of Cardiac Rhythm, Single (ICD-10-PCS; principal; 2017-09-15 11:30)
DX: I21.4 Non-ST elevation (NSTEMI) myocardial infarction (principal); I50.43 Acute on chronic combined systolic (congestive) and diastolic (congestive) heart failure; N17.9 Acute kidney failure, unspecified; I42.9 Cardiomyopathy, unspecified; I11.0 Hypertensive heart disease with heart failure; I48.0 Paroxysmal atrial fibrillation; E11.9 Type 2 diabetes mellitus without complications; I35.0 Nonrheumatic aortic (valve) stenosis; I25.119 Atherosclerotic heart disease of native coronary artery with unspecified angina pectoris; I25.10 Atherosclerotic heart disease of native coronary artery without angina pectoris; E78.5 Hyperlipidemia, unspecified; Z79.02 Long term (current) use of antithrombotics/antiplatelets; Z79.82 Long term (current) use of aspirin; Z79.4 Long term (current) use of insulin; Z95.5 Presence of coronary angioplasty implant and graft
CPT/HCPCS: 36415; 71045; 80048; 80053; 82550; 82553; 82962; 83735; 83880; 84100; 84484; 85025; 85610; 85730; 92961; 93005; 93306; 94660; 96374; 97162; 99291-25; J1940

== ENCOUNTER 2017-09-28 00:29 | Inpatient (IN) | payer BC ==
[2017-09-28] MEDS: IPRATROPIUM (NEB) 0.5 MG/2.5 ML AMP INH (00:54)
[2017-09-28] MEDS: ALBUTEROL 0.5% (NEB) 2.5 MG/0.5 ML AMP INH (00:54)
[2017-09-28] MEDS: METHYLPREDNISOLONE 125 MG INJ IV (00:56)
[2017-09-28 01:08] LABS: ADD MAN DIFF? NO
[2017-09-28 01:12] LABS: WHITE BLOOD COUNT 12.4 10^3/ul (4.8-10.8)
[2017-09-28 01:12] LABS: BASOPHILS % 0.3 % (0.0-2.0); EOSINOPHILS % 0.2 % (0.0-7.0); HEMATOCRIT 32.6 % (37.0-47.0); HEMOGLOBIN 10.1 g/dl (12.0-16.0); MEAN CORPUSCULAR HEMOGLOBIN 26.4 pg (29.0-33.0); MEAN CORPUSCULAR VOLUME 85.3 fl (82.0-101.0); MEAN PLATELET VOLUME 11.2 fl (7.4-10.4); MONOCYTE # 0.5 10^3/ul (0.3-0.9); MONOCYTES % 3.7 % (0.0-11.0); NEUTROPHIL # 9.8 10^3/ul (1.6-7.5); NEUTROPHILS % 79.1 % (39.0-77.0); PLATELET COUNT 279 10^3/UL (140-415); RED BLOOD COUNT 3.82 10^6/ul (4.20-5.40); RED CELL DISTRIBUTION WIDTH 14.7 % (11.5-14.5)
[2017-09-28 01:18] LABS: AADO2 Arterial 272.1 mmHg (7.0-24.0); Allen Test ACCEPTAB; Arterial Base Excess -12.9 mmol/L (-3.0-3); Arterial COHb 0.3 % (0.0-3.0); Arterial Fraction of Oxyhgb 93.3 % (93.0-99.0); Arterial HCO3 11.3 mmol/L (22.0-26.0); Arterial MetHb 0.4 % (0.0-1.5); Arterial pCO2 22.3 mmhg (35-45); MODE AEROSOL MASK8; Site Left Radial
[2017-09-28 01:33] LABS: ALANINE AMINOTRANSFERASE 19 IU/L (13-69); ALBUMIN 4.9 g/dl (3.3-4.9); ALBUMIN/GLOBULIN RATIO 1.63; ALKALINE PHOSPHATASE 77 IU/L (42-121); ANION GAP 30 (8-16); ASPARTATE AMINO TRANSFERASE 21 IU/L (15-46); BILIRUBIN,INDIRECT 0.2 mg/dl (0-1.1); BILIRUBIN,TOTAL 0.2 mg/dl (0.2-1.3); BLOOD UREA NITROGEN 23 mg/dl (7-20); CALCIUM 9.7 mg/dl (8.4-10.2); CARBON DIOXIDE 13 mmol/L (21-31); CHLORIDE 103 mmol/L (97-110); CREATININE 1.95 mg/dl (0.44-1.00); GLUCOSE 292 mg/dl (70-220); POTASSIUM 5.4 mmol/L (3.5-5.1); SODIUM 141 mmol/L (135-144); TOTAL PROTEIN 7.9 g/dl (6.1-8.1)
[2017-09-28] MEDS: FUROSEMIDE 40 MG INJ IV (01:33)
[2017-09-28 01:45] LABS: B-TYPE NATRIURETIC PEPTIDE 11900 PG/ML (0-450); TROPONIN-I 0.056 ng/ml (0.00-0.12)
[2017-09-28 02:31] LABS: LACTIC ACID 8.6 mmol/L (0.5-2.0)
[2017-09-28] MEDS: CEFEPIME 2GM/50 ML (PMX) 50 ML IVPB (03:00)
[2017-09-28] MEDS: VANCOMYCIN 1 GM (PMX) 250 ML IVPB (03:39)
[2017-09-28 03:45] LABS: LACTIC ACID 6.8 mmol/L (0.5-2.0)
[2017-09-28 04:35] LABS: INR 1.61; PROTIME 19.5 Sec (11.9-14.9); PT RATIO 1.5
[2017-09-28 04:36] LABS: PARTIAL THROMBOPLASTIN TIME 30.7 Sec (25.0-35.0)
[2017-09-28] MEDS ORDERED: NACL 0.9% 3 ML SYG IV (06:30)
[2017-09-28] MEDS ORDERED: ACETAMINOPHEN 325 MG TAB PO (06:30)
[2017-09-28] MEDS ORDERED: VANCOMYCIN IV PER PHARMACY XX (06:30)
[2017-09-28] MEDS ORDERED: morphine 2 MG INJ IV (06:30)
[2017-09-28] MEDS ORDERED: NITROGLYCERIN (SL) 0.4 MG TAB SL (06:30)
[2017-09-28] MEDS ORDERED: ONDANSETRON 4 MG INJ IV (06:30)
[2017-09-28 07:02] LABS: LACTIC ACID 5.4 mmol/L (0.5-2.0)
[2017-09-28] MEDS: PIPER-TAZO 2.25 GM (PMX) 50 ML IVPB ×3 (07:48→22:41)
[2017-09-28] MEDS: ALBUMIN HUMAN 25% 100 ML IV ×2 (07:52→10:17)
[2017-09-28] MEDS ORDERED: ENOXAPARIN 100 MG/ML SYG SC (09:00)
[2017-09-28] MEDS ORDERED: DEXTROSE 50% 50 ML SYRINGE IV ×4 (09:00→22:30)
[2017-09-28] MEDS ORDERED: APIXABAN 5 MG TABLET PO (09:00)
[2017-09-28] MEDS: ACCU-CHEK XX ×15 (10:00→23:32)
[2017-09-28 10:09] LABS: CREATINE KINASE 38 IU/L (23-200)
[2017-09-28] MEDS: ALBUTEROL/IPRATROPIUM (NEB) 3 ML AMP HHN ×3 (10:15→19:44)
[2017-09-28] MEDS: CLOPIDOGREL 75 MG TAB PO (10:18)
[2017-09-28] MEDS: METOPROLOL 25 MG TAB PO ×2 (10:18→21:45)
[2017-09-28] MEDS: AMIODARONE 200 MG TAB PO (10:19)
[2017-09-28] MEDS: GABAPENTIN 100 MG CAP PO (10:21)
[2017-09-28 10:22] LABS: CK INDEX 3.3; CK-MB 1.26 ng/ml (0.0-2.4); TROPONIN-I 0.059 ng/ml (0.00-0.12)
[2017-09-28] MEDS: ENOXAPARIN 80 MG/0.8 ML SYG SC (10:22)
[2017-09-28 11:04] LABS: LACTIC ACID 3.4 mmol/L (0.5-2.0)
[2017-09-28] MEDS: BUMETANIDE 3 MG in DEXTROSE 5% 18 ML IV (11:29)
[2017-09-28] MEDS: INSULIN HUMAN REGULAR 100 UNIT in SOD CHLORIDE 0.9% 99 ML IV (11:42)
[2017-09-28 13:09] LABS: CREATINE KINASE 100 IU/L (23-200)
[2017-09-28 13:15] LABS: LACTIC ACID 3.4 mmol/L (0.5-2.0)
[2017-09-28 13:21] LABS: CK INDEX 1.7; CK-MB 1.68 ng/ml (0.0-2.4); TROPONIN-I 0.053 ng/ml (0.00-0.12)
[2017-09-28] MEDS ORDERED: GLUCOSE GEL 15 GRAM TUBE PO ×2 (22:30)
[2017-09-28] MEDS ORDERED: GLUCOSE GEL 15 GRAM TUBE BUCCAL (22:30)
[2017-09-28] MEDS ORDERED: GLUCAGON 1 MG INJ IM (22:30)
[2017-09-29] MEDS: ACCU-CHEK XX ×10 (00:26→08:59)
[2017-09-29 05:15] LABS: WHITE BLOOD COUNT 9.9 10^3/ul (4.8-10.8)
[2017-09-29 05:15] LABS: BASOPHILS % 0.2 % (0.0-2.0); HEMATOCRIT 23.7 % (37.0-47.0); HEMOGLOBIN 7.9 g/dl (12.0-16.0); LYMPHOCYTES # 0.9 10^3/ul (0.8-2.9); LYMPHOCYTES % 8.8 % (15.0-51.0); MEAN CORPUSCULAR HEMOGLOBIN 26.7 pg (29.0-33.0); MEAN CORPUSCULAR HGB CONC 33.3 g/dl (32.0-37.0); MEAN CORPUSCULAR VOLUME 80.1 fl (82.0-101.0); MEAN PLATELET VOLUME 10.8 fl (7.4-10.4); MONOCYTE # 0.4 10^3/ul (0.3-0.9); MONOCYTES % 4.5 % (0.0-11.0); NEUTROPHIL # 8.5 10^3/ul (1.6-7.5); NEUTROPHILS % 85.9 % (39.0-77.0); PLATELET COUNT 196 10^3/UL (140-415); RED BLOOD COUNT 2.96 10^6/ul (4.20-5.40); RED CELL DISTRIBUTION WIDTH 14.8 % (11.5-14.5)
[2017-09-29 05:16] LABS: ADD MAN DIFF? NO
[2017-09-29 05:49] LABS: ALANINE AMINOTRANSFERASE 27 IU/L (13-69); ALBUMIN 4.4 g/dl (3.3-4.9); ALBUMIN/GLOBULIN RATIO 1.62; ALKALINE PHOSPHATASE 48 IU/L (42-121); ANION GAP 21 (8-16); ASPARTATE AMINO TRANSFERASE 26 IU/L (15-46); BILIRUBIN,INDIRECT 0.2 mg/dl (0-1.1); BILIRUBIN,TOTAL 0.2 mg/dl (0.2-1.3); BLOOD UREA NITROGEN 37 mg/dl (7-20); CALCIUM 9.3 mg/dl (8.4-10.2); CARBON DIOXIDE 19 mmol/L (21-31); CHLORIDE 107 mmol/L (97-110); CREATININE 2.35 mg/dl (0.44-1.00); GLUCOSE 86 mg/dl (70-220); POTASSIUM 4.8 mmol/L (3.5-5.1); SODIUM 142 mmol/L (135-144); TOTAL PROTEIN 7.1 g/dl (6.1-8.1)
[2017-09-29] MEDS: PIPER-TAZO 2.25 GM (PMX) 50 ML IVPB ×2 (06:52→13:53)
[2017-09-29 07:22] LABS: HEMOGLOBIN A1C 6.8 % (0-5.9)
[2017-09-29] MEDS: INSULIN ASPART [NOVOLOG] 3 ML PEN SC ×3 (07:26→17:35)
[2017-09-29 07:49] LABS: PHOSPHORUS 5.2 mg/dl (2.5-4.9)
[2017-09-29 08:05] LABS: MAGNESIUM 1.3 mg/dl (1.7-2.5)
[2017-09-29 08:41] LABS: IRON 32 ug/dl (35-150)
[2017-09-29 08:50] LABS: % IRON SATURATION 12 % SAT (22-52); TOTAL IRON BINDING CAPACITY 265 ug/dl (241-421)
[2017-09-29] MEDS: METOPROLOL 25 MG TAB PO ×2 (09:00→21:00)
[2017-09-29] MEDS: GABAPENTIN 100 MG CAP PO (09:05)
[2017-09-29] MEDS: CLOPIDOGREL 75 MG TAB PO (09:05)
[2017-09-29] MEDS: AMIODARONE 200 MG TAB PO (09:06)
[2017-09-29] MEDS: ENOXAPARIN 80 MG/0.8 ML SYG SC (09:11)
[2017-09-29] MEDS: ALBUTEROL/IPRATROPIUM (NEB) 3 ML AMP HHN ×4 (10:08→21:20)
[2017-09-29 10:55] LABS: ADD UMIC YES; UR ASCORBIC ACID NEGATIVE (NEGATIVE); UR BACTERIA FEW /HPF (NONE SEEN); UR BILIRUBIN (Dip) NEGATIVE (NEGATIVE); UR BLOOD (Dip) 2+ mg/dL (NEGATIVE); UR CLARITY SLIGHTLY CLOUDY (CLEAR); UR COLOR YELLOW (YELLOW); UR GLUCOSE (Dip) NEGATIVE (NEGATIVE); UR KETONES (Dip) NEGATIVE (NEGATIVE); UR LEUKOCYTE ESTERASE (Dip) TRACE Leu/ul (NEGATIVE); UR NITRITE (Dip) NEGATIVE (NEGATIVE); UR RBC 25 /HPF (0-5); UR SPECIFIC GRAVITY (Dip) 1.012 (1.003-1.030); UR SQUAMOUS EPITHELIAL CELL FEW /HPF (FEW); UR TOTAL PROTEIN (Dip) NEGATIVE (NEGATIVE); UR UROBILINOGEN (Dip) NEGATIVE (NEGATIVE); UR WBC 2 /HPF (0-5)
[2017-09-29] MEDS: VANCOMYCIN 1 GM 250 ML IVPB (11:16)
[2017-09-29 11:20] LABS: SODIUM,URINE RANDOM 102 mmol/L (30-90)
[2017-09-29 11:21] LABS: CREATININE,URINE RANDOM 53.36 mg/dl (20-320)
[2017-09-29] MEDS: ATORVASTATIN 80 MG TAB PO (21:11)
[2017-09-30 04:32] LABS: ADD MAN DIFF? NO
[2017-09-30 04:34] LABS: BASOPHILS % 0.3 % (0.0-2.0); EOSINOPHILS % 0.3 % (0.0-7.0); HEMATOCRIT 23.2 % (37.0-47.0); HEMOGLOBIN 7.6 g/dl (12.0-16.0); LYMPHOCYTES # 1.2 10^3/ul (0.8-2.9); LYMPHOCYTES % 16.3 % (15.0-51.0); MEAN CORPUSCULAR HEMOGLOBIN 26.8 pg (29.0-33.0); MEAN CORPUSCULAR HGB CONC 32.8 g/dl (32.0-37.0); MEAN CORPUSCULAR VOLUME 81.7 fl (82.0-101.0); MONOCYTE # 0.4 10^3/ul (0.3-0.9); NEUTROPHIL # 5.6 10^3/ul (1.6-7.5); NEUTROPHILS % 77.5 % (39.0-77.0); PLATELET COUNT 190 10^3/UL (140-415); RED BLOOD COUNT 2.84 10^6/ul (4.20-5.40); RED CELL DISTRIBUTION WIDTH 14.9 % (11.5-14.5)
[2017-09-30 04:34] LABS: WHITE BLOOD COUNT 7.2 10^3/ul (4.8-10.8)
[2017-09-30 04:53] LABS: ANION GAP 18 (8-16); BLOOD UREA NITROGEN 34 mg/dl (7-20); CALCIUM 9.1 mg/dl (8.4-10.2); CARBON DIOXIDE 20 mmol/L (21-31); CHLORIDE 108 mmol/L (97-110); CREATININE 1.79 mg/dl (0.44-1.00); GLUCOSE 116 mg/dl (70-220); MAGNESIUM 1.4 mg/dl (1.7-2.5); PHOSPHORUS 3.8 mg/dl (2.5-4.9); POTASSIUM 4.7 mmol/L (3.5-5.1); SODIUM 141 mmol/L (135-144)
[2017-09-30] MEDS: AMIODARONE 200 MG TAB PO (08:18)
[2017-09-30] MEDS: CLOPIDOGREL 75 MG TAB PO (08:18)
[2017-09-30] MEDS: GABAPENTIN 100 MG CAP PO (08:18)
[2017-09-30] MEDS: ENOXAPARIN 80 MG/0.8 ML SYG SC (08:35)
[2017-09-30] MEDS: INSULIN ASPART [NOVOLOG] 3 ML PEN SC ×3 (08:35→18:03)
[2017-09-30] MEDS: METOPROLOL 25 MG TAB PO ×2 (09:00→20:22)
[2017-09-30] MEDS: ALBUTEROL/IPRATROPIUM (NEB) 3 ML AMP HHN ×4 (09:05→20:33)
[2017-09-30] MEDS: FUROSEMIDE 20 MG TAB PO ×2 (09:52→18:05)
[2017-09-30] MEDS: MAGNESIUM SULFATE 2 GM/50 ML 50 ML IVPB (09:52)
[2017-09-30 14:38] LABS: CREATININE, RANDOM URINE 64 mg/dL (20-320); MICROALBUMIN 3.4 mg/dL; MICROALBUMIN/CREATININE RATIO 53 (<30)
[2017-09-30] MEDS: ATORVASTATIN 80 MG TAB PO (20:21)
[2017-10-01] MEDS: FUROSEMIDE 20 MG TAB PO ×2 (05:23→08:24)
[2017-10-01 07:03] LABS: ADD MAN DIFF? NO
[2017-10-01 07:12] LABS: WHITE BLOOD COUNT 6.4 10^3/ul (4.8-10.8)
[2017-10-01 07:12] LABS: BASOPHILS % 0.5 % (0.0-2.0); EOSINOPHILS # 0.2 10^3/ul (0.0-0.5); EOSINOPHILS % 2.7 % (0.0-7.0); HEMATOCRIT 27.7 % (37.0-47.0); LYMPHOCYTES # 1.4 10^3/ul (0.8-2.9); LYMPHOCYTES % 21.5 % (15.0-51.0); MEAN CORPUSCULAR HEMOGLOBIN 26.5 pg (29.0-33.0); MEAN CORPUSCULAR HGB CONC 32.5 g/dl (32.0-37.0); MEAN CORPUSCULAR VOLUME 81.5 fl (82.0-101.0); MEAN PLATELET VOLUME 11.1 fl (7.4-10.4); MONOCYTE # 0.3 10^3/ul (0.3-0.9); MONOCYTES % 4.7 % (0.0-11.0); NEUTROPHIL # 4.5 10^3/ul (1.6-7.5); PLATELET COUNT 228 10^3/UL (140-415)
[2017-10-01 07:28] LABS: ANION GAP 18 (8-16); BLOOD UREA NITROGEN 29 mg/dl (7-20); CALCIUM 9.4 mg/dl (8.4-10.2); CARBON DIOXIDE 24 mmol/L (21-31); CHLORIDE 104 mmol/L (97-110); CREATININE 1.45 mg/dl (0.44-1.00); GLUCOSE 157 mg/dl (70-220); MAGNESIUM 1.4 mg/dl (1.7-2.5); PHOSPHORUS 3.4 mg/dl (2.5-4.9); POTASSIUM 4.4 mmol/L (3.5-5.1); SODIUM 142 mmol/L (135-144)
[2017-10-01] MEDS: ALBUTEROL/IPRATROPIUM (NEB) 3 ML AMP HHN ×3 (08:03→16:37)
[2017-10-01] MEDS: CLOPIDOGREL 75 MG TAB PO (08:22)
[2017-10-01] MEDS: AMIODARONE 200 MG TAB PO (08:22)
[2017-10-01] MEDS: GABAPENTIN 100 MG CAP PO (08:22)
[2017-10-01] MEDS: METOPROLOL 25 MG TAB PO (08:23)
[2017-10-01] MEDS: INSULIN ASPART [NOVOLOG] 3 ML PEN SC ×2 (08:49→11:50)
[2017-10-01] MEDS: ENOXAPARIN 80 MG/0.8 ML SYG SC (09:00)
[2017-10-01] MEDS: MAGNESIUM SULFATE 4 GM/100 ML 100 ML IVPB (11:59)
== END 2017-10-01 16:55 | disposition home or self-care (01) | DRG 871 ==
LOC: TEL 09-30 05:08 → FTE 00:29 → ICU 02:52
DX: A41.9 Sepsis, unspecified organism (principal); I50.43 Acute on chronic combined systolic (congestive) and diastolic (congestive) heart failure; J96.01 Acute respiratory failure with hypoxia; E11.10 Type 2 diabetes mellitus with ketoacidosis without coma; G92 Toxic encephalopathy; J18.9 Pneumonia, unspecified organism; E87.2 Acidosis; I13.0 Hypertensive heart and chronic kidney disease with heart failure and stage 1 through stage 4 chronic kidney disease, or unspecified chronic kidney disease; N17.9 Acute kidney failure, unspecified; I48.2 Chronic atrial fibrillation; E11.22 Type 2 diabetes mellitus with diabetic chronic kidney disease; D63.1 Anemia in chronic kidney disease; E87.5 Hyperkalemia; E83.42 Hypomagnesemia; I35.0 Nonrheumatic aortic (valve) stenosis; I25.10 Atherosclerotic heart disease of native coronary artery without angina pectoris; N18.9 Chronic kidney disease, unspecified; Z98.61 Coronary angioplasty status; Z79.84 Long term (current) use of oral hypoglycemic drugs; Z79.02 Long term (current) use of antithrombotics/antiplatelets
CPT/HCPCS: 36415; 36600; 71045; 80048; 80053; 81001; 81003; 82043; 82550; 82553; 82728; 82803; 82962; 83036; 83540; 83605; 83735; 83880; 84100; 84155; 84300; 84443; 84484; 85025; 85610; 85730; 87040; 87081; 93005; 94640; 94644; 94660; 94664; 96365; 96366; 96368; 96372; 96375; 99291-25